=== PATIENT | female | born 1985 | race Two or more races ===

== ENCOUNTER 2025-01-14 13:57 | Emergency (ER) | payer MEDICARE, MEDICAID, SELFPAY ==
--- NOTE | ~2025-01-14 | XR_ITS ---
EXAMINATION: XR CHEST CLINICAL INFORMATION: chest pain COMPARISON: None available. TECHNIQUE: 2 views of the chest were obtained. FINDINGS: The cardiac, hilar, and mediastinal contours are normal. The lungs are clear bilaterally. There is no pneumothorax or pleural effusion. There is no focal osseous or soft tissue abnormality. XR/XR chest 2V IMPRESSION: Normal chest. Electronically signed by: Louie Ng MD 01/14/2025 02:27 PM EDT
--- NOTE | 2025-01-14 14:00 | ECG_ITS ---
Test Reason : CHEST PAIN Blood Pressure : */* mmHG Vent. Rate : 98 BPM Atrial Rate : 98 BPM P-R Int : 138 ms QRS Dur : 80 ms QT Int : 358 ms P-R-T Axes : 39 20 6 degrees QTcB Int : 457 ms Normal sinus rhythm Normal ECG No previous ECGs available Referred By: Roma Moss Electronically Signed By: JUAN CARLOS HUFFMAN
[2025-01-14 14:13] VITALS: BP 130/86; PULSE 88; RESP 18; TEMP 36.6; O2SAT 98; BMI 28.5
--- NOTE | 2025-01-14 14:14 | ED_ITS ---
HPI - Chest Pain General Chief Complaint: General Medical Stated Complaint: ABD pain, belly swelling , CP when breathing Time Seen by Provider: 01/14/25 17:56 History of Present Illness ED Provider: Toan Alva MD HPI narrative: 39-year-old female with history of provoked VTE during here with abdominal pain chest pain with inspiration. Patient reports a history of related thromboembolism she is unsure on the details of this but says with each of her 4 pregnancies was anticoagulated with Lovenox. The most recent was 2015 with her 8-year-old daughter who is at the bedside. A since then she has not been on any anticoagulation. She reports sertraline a sleep aid medication she is not sure the name of. Nonsmoker no drinking or toxic habits. She reports mild vague pulsing sensation of the head and slight lightheadedness warm feeling in the top of the neck. No headache no head strike no prior concussions no focal neuro symptoms. 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 No chest wall injuries denies cough, hemoptysis, leg edema, dyspnea on exertion or exertional chest pain Related Data Allergies Allergy/AdvReac Type Severity Reaction Status Date / Time latex Allergy Unknown Verified 01/14/25 14:14 [facility] Social History Social History Alcohol intake: former Smoked in Last 30 Days: No Use of substances other than those prescribed or required for medical reasons: No Advance Directives: No Advance Directives Information Provided: Yes Do you have a plan to hurt others: No Plan Physical Exam 2 Exam: Exam: GENERAL: Well appearing. No apparent distress. Alert. HEAD/NECK: Normal to inspection. Neck supple. No cervical lymphadenopathy. EYES: Normal to inspection. Sclera non-icteric. ENMT: External nose normal. RESPIRATORY: Respiratory effort normal. Lungs clear to auscultation bilaterally. Mild subjective splinting appearance with deep inspiration no wheeze or rales respiratory rate 14 calm comfortable speaking full sentences CARDIOVASCULAR: Regular rate. Normal rhythm. No murmur. No rubs. GI: Soft, non-tender, non-distended. No rebound or guarding. No masses palpable. No hepatosplenomegaly. SKIN: No jaundice. NEUROLOGICAL: Alert. PSYCHIATRIC: Alert. Appearance appropriate for situation. Attitude cooperative. OTHER: Comprehensive Neuro exam: Face symmetric, tongue midline, strong symmetric eye closure, pupils symmetric and reactive to light, intact sensation to the face throughout, intact strong face deviation and shoulder shrug. Sensation intact to light touch throughout * 5 out of 5 strength in bilateral upper extremities, 5 and 5 strength in lower extremities Vital Signs: Vital Signs: Last Vital Signs Temp 98.7 F 01/14/25 20:44 Pulse 85 01/14/25 20:44 Resp 18 01/14/25 20:44 BP 132/79 01/14/25 20:44 Pulse Ox 97 01/14/25 20:44 O2 Del Method Room Air 01/14/25 20:44 BMI result Body Mass Index 28.5 Course Course Course Narrative: VITA Sterling 01/14/25 1416 This is a Rapid Medical Examination (RME) performed by Shona Msos PA-C in triage. Full HPI, ROS, assessment and treatment plan per primary provider in the Main ED. Hx: 39 yo F hx of VTE during , no longer on AC, here for eval of pleuritic chest pain and headache since yesterday. pain w/ deep breathing which induces cough. no sputum production, no SOB. no recent travel or long car rides. no OCP use. denies chance of preg. PE/vitals: well appearing, not hypoxic or tachycardic. Plan: labs, ekg, cxr, viral swabs Medications Administered Discontinued Medications Generic Name Dose Route Start Last Admin Trade Name Julien PRN Reason Stop Dose Admin Acetaminophen 975 mg 01/14/25 18:16 01/14/25 18:27 Acetaminophen 325 Mg Tablet PO 01/14/25 18:17 975 mg ONCE ONE Administration Metoclopramide HCl 10 mg 01/14/25 18:16 01/14/25 18:27 Metoclopramide Hcl 10 Mg Tablet PO 01/14/25 18:17 10 mg ONCE ONE Administration Naproxen 500 mg 01/14/25 18:16 01/14/25 18:26 Naproxen 500 Mg Tablet PO 01/14/25 18:17 500 mg ONCE ONE Administration Medical Decision Making Medical Decision Making MDM Narrative: Medical Decision Makin-year-old female with a history of provoked thromboembolism of unclear location. Pleuritic pain without clear explanation reassuring ECG, reassuring exam, reassuring chest x-ray here. No hypoxia tachycardia or objective signs of DVT. Unable to see details given the retroactive time restriction on my access to [facility] records and it seems most recent VTE and anticoagulation was before or 5 years ago Plan for a D-dimer. Bedside echo to evaluate for possible pericarditis/pericardial effusion Preliminary Favored Differential Diagnosis: PE, pleuritis, pericardial effusion/pericarditis, musculoskeletal pain Regarding headache/pulsing sensation probably dehydration versus migrainous versus related to environmental/increased particular matter from low local while fire particulate in the air regionally here over the past few days among additional considered etiologies Testing Interpreted Independently: ECG: Sinus rhythm no RV strain no acute ischemic changes Radiology or Lab testing Results Reviewed: X-ray report reviewed normal. Labs non actionable Consults: Not Applicable Independent Historians/External Chart Reviews: Personally reviewed accessible ED and inpatient [facility] records only available over the last 5 years which was a 2021 inpatient admission for infected abdominal wall [facility] no mention of PE/DVT in her history there during that admission Social Determinants of Health Impacting MDM/Planning: Not Applicable Lab Data 01/14/25 14:34 01/14/25 14:34 Labs: Lab Results 01/14/25 01/14/25 Range/Units 14:34 18:22 WBC 10.6 (4.8-10.8) X10*3/uL RBC 4.21 (4.20-5.50) X10*6/uL Hgb 12.3 (12.0-16.0) g/dl Hct 36.1 L (37.0-47.0) % MCV 85.7 (80.0-98.0) fL MCH 29.2 (27.0-33.0) pg MCHC 34.1 (31.0-35.0) g/dl RDW 13.0 (11.0-16.0) % Plt Count 281 (160-400) X10*3/uL MPV 9.0 L (9.4-12.3) fL Immature Gran % (Auto) 0.3 (0.0-0.4) % Neut % (Auto) 73.4 H (45-73) % Lymph % (Auto) 19.4 L (20-40) % [place] % (Auto) 4.9 (2-11) % Eos % (Auto) 1.6 (0-4) % Baso % (Auto) 0.4 (0-2) % Lymph # (Auto) 2.1 (1.2-4.9) X10*3/uL [place] # (Auto) 0.5 (0.1-1.2) X10*3/uL Eos # (Auto) 0.2 (0.0-0.4) X10*3/uL Baso # (Auto) 0.0 (0.0-0.2) X10*3/uL Abs Immat Gran (auto) 0.03 (0.00-0.03) X10*3/uL Absolute Neuts (auto) 7.8 (2.0-8.3) x10*3/uL Absolute Nucleated RBC 0.000 (0.0-0.012) X10*3/uL Nucleated RBC % (auto) 0.0 (0.0-0.2) /100WBC D-Dimer High Sensitivty < 150 NG/ML Sodium 139 (135-145) mmol/L Potassium 3.9 (3.3-5.1) mmol/L Chloride 107 (96-108) mmol/L Carbon Dioxide 22 (22-29) mmol/L Anion Gap 14 (12-20) BUN 8 L (9-16) mg/dL Creatinine 0.49 L (0.5-1.4) mg/dL Estim Creat Clear Calc 147.6 Estimated GFR > 60 Random Glucose 102 (60-115) mg/dL Calcium 9.3 (8.4-10.2) mg/dL Magnesium 1.9 (1.6-2.6) mg/dL Total Bilirubin 1.1 H (0.0-1.0) mg/dL AST 33 H (5-31) U/L ALT 37 H (0-31) U/L Alkaline Phosphatase 77 (39-117) U/L Troponin I High Sens < 2.7 (<3.5-17.0) ng/L Total Protein 7.7 (6.5-8.0) g/dL Albumin 4.8 (3.5-5.0) g/dL Beta HCG, Quant < 2 mIU/mL Influenza Type A (PCR) NEGATIVE (Negative) Influenza Type B (PCR) NEGATIVE (Negative) RSV RNA Qual (PCR) NEGATIVE (Negative) SARS-CoV-2 RNA (RT-PCR) NEGATIVE (Negative) Discharge Plan Discharge Clinical Impression: Chest pain, pleuritic Patient Disposition: Home, Self-Care Instructions: Chest Pain (DC) Additional Instructions: _ DISCHARGE DIAGNOSES: Chest pain bilateral lower anterior chest pain with deep breathing only. 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 you had pleuritic pain in the chest that has continued no injuries EMERGENCY DEPARTMENT COURSE,TESTS, TREATMENTS: While in the ED today EKG, blood tests have excluded heart attack, blood clot in the lung, pneumonia or other serious causes DISCHARGE MEDICATIONS: ?We recommend taking ibuprofen 600 mg 3 times a day for the next 3 days to see if this improves your pain this is [id number] FOLLOW-UP: ?Call your primary or general physician soon as possible to discuss your symptoms, your ED visit and to discuss follow up plans Call your primary doctor for follow up INSTRUCTIONS ?& RETURN PRECAUTIONS: If any symptoms change first call your primary physician, if it is after-hours your primary doctors office should have a provider telephonic case manager you can speak with. If the symptoms are severe or very concerning to you then call 911 or return to the ED. Return for severe shortness of breath, coughing blood, severe or worsening chest pain or other symptoms as we discussed Toan Alva MD Emergency Physician [facility] Interventions: ED Discharge Assessment Last Done: 01/14/25 20:44 Discharge Date/Time: 01/14/25 20:45 Print Language: Urdu
[2025-01-14 14:40] LABS: MANUAL DIFF FLAG NO
[2025-01-14 14:44] LABS: Hematocrit 36.1 % (37.0-47.0); Hemoglobin 12.3 g/dl (12.0-16.0); Imm Gran Abs Auto 0.03 X10*3/uL (0.00-0.03); Imm Gran Pct Auto 0.3 % (0.0-0.4); Lymphocytes Absolute Auto 2.1 X10*3/uL (1.2-4.9); Mean Corpuscular HGB Conc 34.1 g/dl (31.0-35.0); Mean Corpuscular Hemoglobin 29.2 pg (27.0-33.0); Mean Corpuscular Volume 85.7 fL (80.0-98.0); NRBC Abs Auto 0.000 X10*3/uL (0.0-0.012); NRBC Pct Auto 0.0 /100WBC (0.0-0.2); Platelet Count 281 X10*3/uL (160-400); Red Blood Count 4.21 X10*6/uL (4.20-5.50); White Blood Count 10.6 X10*3/uL (4.8-10.8)
[2025-01-14 15:03] LABS: Alanine Aminotransferase 37 U/L (0-31); Albumin Level 4.8 g/dL (3.5-5.0); Alkaline Phosphatase 77 U/L (39-117); Anion Gap 14 (12-20); Aspartate Amino Transferase 33 U/L (5-31); Blood Urea Nitrogen 8 mg/dL (9-16); Calcium 9.3 mg/dL (8.4-10.2); Carbon Dioxide 22 mmol/L (22-29); Chloride 107 mmol/L (96-108); Creatinine Clr Calc Pharmacy 147.6; Estimated Glomerular Filt Rate > 60; Magnesium 1.9 mg/dL (1.6-2.6); Potassium 3.9 mmol/L (3.3-5.1); Sodium 139 mmol/L (135-145); Total Protein 7.7 g/dL (6.5-8.0)
[2025-01-14 15:15] LABS: Troponin-I High Sensitivity < 2.7 ng/L (<3.5-17.0)
[2025-01-14 15:21] LABS: Resp Syncy Virus RNA Qual PCR NEGATIVE (Negative); SARS COV2 PCR INHOUSE NEGATIVE (Negative)
[2025-01-14 17:58] VITALS: BP 132/79; PULSE 85; RESP 18; TEMP 37.1; O2SAT 97
[2025-01-14 19:07] LABS: D Dimer High Sensitivity < 150 NG/ML
[2025-01-14 20:44] VITALS: BP 132/79; PULSE 85; RESP 18; TEMP 37.1; O2SAT 97
== END 2025-01-14 20:45 | disposition home or self-care (01) ==
PROVIDERS: Physician Assistant Medical; Emergency Provider Emergency Medicine
DX: R07.1 Chest pain on breathing (principal); R10.2 Pelvic and perineal pain; Z03.818 Encounter for observation for suspected exposure to other biological agents ruled out; Z79.899 Other long term (current) drug therapy
CPT/HCPCS: 36415; 71046; 80053; 83735; 84484; 84702; 85025; 85379; 87637; 93005; 99283; 99284

== ENCOUNTER → 2025-01-14 14:00 | Outpatient (BNV) | payer MEDICARE, MEDICAID, SELFPAY | PROVIDERS: Emergency Provider Emergency Medicine; Visit Provider Internal Medicine | DX: R07.9 Chest pain, unspecified (principal) | CPT/HCPCS: 93010 ==

== ENCOUNTER → 2025-01-14 14:15 | Outpatient (BNV) | payer MEDICARE, MEDICAID, SELFPAY | PROVIDERS: Visit Provider Radiology Diagnostic Radiology | DX: R07.9 Chest pain, unspecified (principal) | CPT/HCPCS: 71046 ==